=== PATIENT | male | born 1955 | race Caucasian/White ===

== ENCOUNTER 2023-10-23 06:51 | Day surgery (SDC) | payer MEDICARE ==
[~2023-10-23] VITALS: Ht 170.2 cm; Wt 75.2 kg
[~2023-10-23 06:51] MED LIST: ASPI81CH; ATIVAN0.5 MG; ATOR20; Advil200 M1; CARV6.25; TADA10TA
[2023-10-23] MEDS ORDERED: MULVITA (07:13)
[2023-10-23] MEDS ORDERED: BUPR150ER (07:13)
[2023-10-23] MEDS ORDERED: SILD25T (07:14)
[2023-10-23] MEDS ORDERED: propofoL 50 ML IV ONE (07:36)
[2023-10-23] MEDS ORDERED: Lactated Ringer's 1,000 ML IV ONE ×2 (07:36→07:50)
[2023-10-23 09:06] VITALS: BP 109/75
== END 2023-10-23 09:00 | disposition home or self-care (01) ==
LOC: ORSCSDS 06:51
PROVIDERS: Surgery
PROC: 0DJD8ZZ Inspection of Lower Intestinal Tract, Via Natural or Artificial Opening Endoscopic (ICD-10-PCS; principal; 2023-10-23 08:00)
DX: Z12.11 Encounter for screening for malignant neoplasm of colon (principal); Z86.010 Personal history of colon polyps; K57.30 Diverticulosis of large intestine without perforation or abscess without bleeding; E11.9 Type 2 diabetes mellitus without complications; G47.33 Obstructive sleep apnea (adult) (pediatric); E78.5 Hyperlipidemia, unspecified; Z87.891 Personal history of nicotine dependence; Z79.82 Long term (current) use of aspirin; Z79.899 Other long term (current) drug therapy
CPT/HCPCS: 82947; J2704; J7120

== ENCOUNTER → 2025-06-05 | Outpatient (CLI) | payer MEDICARE ==
[~2025-06-05] MED LIST changes: +BUPR150ER; +MULVITA; +SILD25T
[2025-06-05 16:52] LABS: Microalbumin, Urine Quant. 16.5 mg/L (0.000-20.000); Protein, Urine Quantitative 10.6 mg/dL (0.0-11.9)
== END ==
LOC: LAB 07:45 → LAB SHORT 07:45 → LAB FUT 06-02 11:55
PROVIDERS: Internal Medicine Nephrology
DX: E78.00 Pure hypercholesterolemia, unspecified (principal); E11.22 Type 2 diabetes mellitus with diabetic chronic kidney disease; N18.2 Chronic kidney disease, stage 2 (mild); D63.1 Anemia in chronic kidney disease; E55.9 Vitamin D deficiency, unspecified; R76.9 Abnormal immunological finding in serum, unspecified; R94.5 Abnormal results of liver function studies; R94.6 Abnormal results of thyroid function studies; D51.8 Other vitamin B12 deficiency anemias; D52.8 Other folate deficiency anemias; D50.9 Iron deficiency anemia, unspecified
CPT/HCPCS: 81050; 82043; 82570; 84156